=== PATIENT | male | born 1980 | race Caucasian/White ===

== ENCOUNTER 2019-11-15 12:55 | Outpatient (REF) | payer MEDICAID, SELFPAY ==
[2019-11-15 13:50] LABS: Bilirubin Negative (Negative); Blood Negative (Negative); Clarity Clear (Clear); Glucose Negative (Negative); Ketones Negative (Negative); Leukocyte Esterase Negative (Negative); Nitrite Negative (Negative); Specific Gravity 1.025 (1.005-1.025); Urobilinogen 0.2 EU/dL (Up TO 0.2)
[2019-11-15 14:02] LABS: Bacteria Negative HPF (Negative); C & S Indicated? No; Casts Negative LPF (Negative); Crystals Negative HPF (Negative); Epithelial Cells Negative HPF (Negative); Mucus Negative (Negative); Other Cells Negative (Negative); RBC 0-2 HPF (0-2); WBC 0-2 HPF (0-5)
[2019-11-15 14:32] LABS: POTASSIUM,URINE RANDOM 47 mmol/L; Sodium, Urine 116 mmol/L
[2019-11-15 14:38] LABS: COMMENT (LAB VIEW ONLY) 79.23 mg/dL; Microalb ug/mg Crea 5.8 ug/mg Cr
[2019-11-15 20:31] LABS: Osmolality, Urine 540 mOsm/kg (150-1,150)
== END 2019-11-15 13:15 ==
LOC: LBN 12:55
PROVIDERS: PCP Emergency Medicine; Visit Provider Internal Medicine
DX: N20.0 Calculus of kidney (principal); I10 Essential (primary) hypertension
CPT/HCPCS: 83935; 81003; 81015; 82040; 82043; 82436; 82570; 84133; 84300

== ENCOUNTER 2020-01-09 13:47 | Emergency (ER) | payer MEDICAID, SELFPAY ==
[2020-01-09] VITALS (25 sets, daily range): BP systolic 136–184; BP diastolic 75–108; PULSE 73–121; RESP 11–21; TEMP 37.1–37.2; O2SAT 95–100
--- NOTE | 2020-01-09 13:45 | RT.EKG_ITS ---
APPROVED REPORT Exam: Resting ECG Patient Location: E HR:108 bpm ECG Measurements Heart Rate 108 AXIS IL 147 P 53 QRSd 81 QRS 14 QT 333 T 38 QTc 443 Conclusion Sinus tachycardia...rate 108, Ventricular premature complex..no st elevation
[2020-01-09] MEDS: Normal Saline Flush 10 ML SYR IVP (14:00)
--- NOTE | 2020-01-09 14:10 | W.ED.GENAD ---
Discharge Plan Disposition Patient Disposition: HOME Condition: Improving Discharge Details Chief Complaint: GenMedical Clinical Impression: Hypertension Primary Care Provider: Teddy Montanez ED Provider: Andrew Patrick Home Meds and New Rx's Prescriptions: Continued triamcinolone acetonide 0.025 % ointment 2 % Topical DAILY Qty: 1 RF: 3 metoprolol succinate 50 mg tablet extended release 24 hr 50 mg PO DAILY Qty: 90 RF: 3 cetirizine [24Hour Allergy] 10 mg tablet 10 mg PO DAILY Qty: 100 RF: 3 famotidine [Pepcid] 20 mg tablet 20 mg PO DAILY Qty: 90 RF: 3 ibuprofen [IBU-200] 200 mg Tablet 600 mg PO Q6H PRNRF: 0 Discharge Instructions Instructions: Hypertension (ED) Additional Instructions: Please follow-up in clinic for your scheduled recheck on January 16 at 1:40 PM. Please check your blood pressures twice daily at the same time. Avoid processed carbohydrates and please limit the salt in your diet. Return if you have persistent headache, develop chest pain, difficulty breathing, or any other acute concerns. Referrals: Teddy Montanez DO [Primary Care Provider] - Medical Decision Making This is a 39-year-old male with a history of hypertension. He states he awoke early this morning for a planned dental procedure regarding which he was anxious. At the dentist office she had hypertension approxi-170/100, the procedure was canceled and he was referred to his primary care office. He was seen at [facility] where he again had hypertension. He was sent home to rest with a plan for outpatient laboratory draw and recheck in 1 week's time. Patient states at home he felt a headache and general malaise. He took ibuprofen and since had improvement of his headache. He does admit to periprocedural anxiety regarding his dental care. He arrives to the ER mildly anxious, mildly tachycardic and moderately hypertensive approximately 165/95 at the time of my exam. Screening EKG unremarkable. Patient given 5 mg of metoprolol, fluid bolus, referred for laboratory testing. White blood cell count is 7, hematocrit 48, platelets 266. His chemistries show sodium 137, potassium 3.4, chloride 90, bicarb 25. BUN is 8 and creatinine 0.8. Negative troponin. He does have elevated glucose 268. Hemoglobin A1c is 5.8. Today's glucose was not a fasting test. He does have glucosuria present along with trace ketones. Given the above I am concerned he is developing borderline diabetes and will require a fasting glucose test. Additionally, he may require increased antihypertensives but has responded well to 5 mg of IV metoprolol in the ED with correction of blood pressure to 140/95. He already has a follow-up plan in place to check daily blood pressures and follow-up in the clinic on January 16. I feel he may require increase to his metoprolol but that it is best to proceed with this plan in place. Discussed above with the patient. He stable and improved at this time. HPI General Mode of arrival: ambulatory. Date/Time Provider Initiated Documentation: 01/09/20 13:47. Limitations to Documentation: no limitations. Information obtained by: patient. History of Present Illness 39 year old M presents to the emergency department with the chief complaint of Elevated blood pressure, weakness and malaise, described as moderate, Quality is described as dull and constant, Patient reports no radiation. Patient started experiencing this hour(s) and it has been constant. No relieving factors improve symptom(s), No exacerbating factors reported . Patient notes other (Had a headache which is now improved). Patient did receive the following treatments prior to arrival, NSAID Related Data Home Medications Medication Instructions Recorded Confirmed triamcinolone acetonide 0.025 % 2 % TOPICAL DAILY #1 tub 06/07/19 01/09/20 topical ointment metoprolol succinate 50 mg 50 mg PO DAILY #90 tab 06/18/19 01/09/20 tablet,extended release 24 hr cetirizine 10 mg tablet 10 mg PO DAILY #100 tab-cap 06/21/19 01/09/20 famotidine 20 mg tablet 20 mg PO DAILY #90 tab 06/21/19 01/09/20 ibuprofen [IBU-200] 600 mg PO Q6H PRN 01/09/20 01/09/20 Previous Rx's Medication Instructions Recorded triamcinolone acetonide 0.025 % 2 % TOPICAL DAILY #1 tub 06/07/19 topical ointment metoprolol succinate 50 mg 50 mg PO DAILY #90 tab 06/18/19 tablet,extended release 24 hr cetirizine 10 mg tablet 10 mg PO DAILY #100 tab-cap 06/21/19 famotidine 20 mg tablet 20 mg PO DAILY #90 tab 06/21/19 Allergies Allergy/AdvReac Type Severity Reaction Status Date / Time chlorthalidone AdvReac Severe Hypokalemia Verified 01/09/20 10:57 omeprazole AdvReac Intermediate gynecomasti Verified 01/09/20 10:57 a tamsulosin HCl [From Flomax] AdvReac Intermediate headache Verified 01/09/20 10:57 General Stated Complaint: GenMedical BRIANNA: 3 Review of Systems Narrative: Patient will note increased urination over weeks to months time. 8 systems reviewed and otherwise negative [facility] Medical History Anxiety (Inactive) Blood glucose abnormal (Inactive 04/27/12) Essential hypertension (Inactive 02/26/16) Kidney stone (Inactive) Left ureteral stone (Inactive 12/25/15) Necrotizing granuloma present on biopsy of lymph node (Inactive 04/22/15) Non-alcoholic fatty liver disease (Inactive) HELTNO Psoriasis (Inactive) PSVT (paroxysmal supraventricular tachycardia) (Acute) Torn ACL (anterior cruciate ligament) (Inactive 05/27/14) right knee. surgery 2014 Surgical History Arthroplasty of knee right- Dr. Ritchie Biopsy, Lymph Node right groin CYSTOURETHROSCOPY (01/06/16) WITH LEFT URETEROSCOPY History of arthroscopy of knee (Inactive) History of ureter stent (Inactive 01/06/16) Repair of inguinal hernia (01/11/17) Right,indirect Stent placement (01/06/16) LEFT URETERAL STENT Family History Grandmother Diabetes Stroke Grandmother Diabetes Heart disease PACEMAKER Social History Smoking/Tobacco Use Status: Never Alcohol Intake: never Drug use: Never Substance use type: does not use Do you feel safe at home: Yes Do you feel safe in your relationship?: Yes Exam Narrative Exam Narrative: GEN: awake, alert, oriented 3. Pleasant, well groomed, interactive. HEAD: Normocephalic, atraumatic ENT: Mucous membranes moist, oropharynx unremarkable, External ear exam unremarkable EYES: PERRL, EOMI NECK: Full ROM, no KEYON, no menigismus CHEST/RESP: Nontender, clear to auscultation bilateral, no wheeze/rhonchi/rales CARDIOVASCULAR: Regular, borderline tachycardia, no murmur, rub gena. 2+ Rad pulse bilateral ABDOMEN: Soft, nontender, no mass. +Bowel sounds EXT: Full ROM, no edema, no rash Neuro: Grossly normal neurologic exam, conversant, interactive. Psych: Speech fluent, thoughts congruent, affect anxious Course Vital Signs Vital signs: Vital Signs Temperature 37.2 C 01/09/20 13:52 Pulse 115 H 01/09/20 13:52 Respiratory Rate 20 01/09/20 13:52 Blood Pressure 184/108 H 01/09/20 13:52 Pulse Oximetry 100 01/09/20 13:52 Temperature 37.2 C 01/09/20 13:52 Temperature Source Temporal Artery Scan 01/09/20 13:52 Pulse 98 H 01/09/20 14:01 Pulse 111 H 01/09/20 14:01 Respiratory Rate 17 01/09/20 14:07 Respiratory Effort 01/09/20 14:07 Respiratory Depth Normal 01/09/20 14:07 Respiratory Pattern Normal 01/09/20 14:07 Blood Pressure 165/95 H 01/09/20 14:01 Blood Pressure Mean 109 01/09/20 14:01 Blood Pressure Position Supine 01/09/20 13:52 Pulse Oximetry 100 01/09/20 14:01 Oxygen Delivery Method Room Air 01/09/20 13:52 Oxygen Flow Rate 0 01/09/20 13:52 Pain Level 0 01/09/20 13:52
[2020-01-09 14:18] LABS: Abs Immature Grans 0.02 10^3/uL (0.0-0.06); Absolute Basophil Count 0.02 10^3/uL (0.0-0.2); Absolute Eosinophil Count 0.02 10^3/uL (0.0-0.7); Absolute Lymphocyte Count 1.87 10^3/uL (1.2-3.4); Absolute Monocyte Count 0.49 10^3/uL (0.1-0.8); Absolute Neutrophil Count 5.48 10^3/uL (1.2-6.7); Basophils % 0.3; Eosinophils % 0.3; HCT 48.1 % (40.0-50.0); Immature Grans % 0.3; Lymphocytes % 23.7; MCH 30.2 pg (27.0-33.0); MCHC 35.3 % (32.0-36.0); MCV 85.4 fL (80-95); MPV 9.5 fL (8.0-11.0); Monocytes % 6.2; Neutrophils % 69.2; Nucleated RBC 0 %; Platelet Count 266 10^3/uL (130-400); RBC 5.63 10^6/uL (4.36-5.78); RDW 12.2 % (11.8-14.1)
[2020-01-09] MEDS: Normal Saline 1,000 ML 1000 ML IV (14:20)
[2020-01-09] MEDS: Metoprolol 5 MG/5 ML VIAL IVP (14:22)
[2020-01-09 14:36] LABS: Bilirubin Negative (Negative); Blood Negative (Negative); Clarity Clear (Clear); Glucose 500 mg/dL (Negative); Ketones Trace mg/dL (Negative); Leukocyte Esterase Negative (Negative); Nitrite Negative (Negative); Specific Gravity 1.025 (1.005-1.025)
[2020-01-09 14:40] LABS: ALT 95 U/L (16-63); AST 51 U/L (15-37); Albumin 4.4 g/dL (3.4-5.0); Alkaline Phosphatase 88 U/L (46-116); Anion Gap 12.6 mmol/L (3-11); BUN 8 mg/dL (7-18); Bilirubin, Total 0.6 mg/dL (0.2-1.0); CO2 25.4 mmol/L (21.0-32.0); CREATININE 0.85 mg/dL (0.70-1.30); Calcium 9.3 mg/dL (8.5-10.1); Chloride 99 mmol/L (98-107); Glucose 268 mg/dL (74-106); Potassium 3.4 mmol/L (3.5-5.1); Sodium 137 mmol/L (136-145); Total Protein 8.4 g/dL (6.4-8.2)
[2020-01-09 14:42] LABS: Troponin I < 0.05 ng/mL (<0.06)
[2020-01-09 15:03] LABS: Hemoglobin A1C 5.8 % (<5.7)
== END 2020-01-09 15:45 | disposition home or self-care (01) ==
LOC: ER 15:43
PROVIDERS: Emergency Provider Emergency Medicine; PCP Emergency Medicine
DX: I10 Essential (primary) hypertension (principal); R51 Headache; F41.9 Anxiety disorder, unspecified; R73.9 Hyperglycemia, unspecified
CPT/HCPCS: 36415; 80053; 93005; 96361; 96374; 99284; 81003; 83036; 84484; 85025; 93010

== ENCOUNTER 2020-02-10 01:35 | Outpatient (CLI) | payer MEDICAID, SELFPAY ==
--- NOTE | 2020-02-10 07:30 | DI.US_ITS ---
EXAM: US ABDOMEN CLINICAL HISTORY: Elevated liver function tests,R79.89 TECHNIQUE: Ultrasound abdomen performed using standard protocol. COMPARISON: CT CHEST FOR PULMONARY EMBOLUS from 10/22/2016 FINDINGS: LIVER: The liver is enlarged, measuring 16.7 cm in length. There is increased echogenicity consisten t with hepatic steatosis. No focal mass is seen. GALLBLADDER: No evidence of cholelithiasis. No evidence of wall thickening. No pericholecystic fluid identified. AARON'S SIGN: Negative. BILIARY SYSTEM: No intrahepatic or extrahepatic biliary ductal dilation. KIDNEYS: Kidneys are symmetric in size. There is a question of nonobstructed renal calculi versus ar tifact. No evidence of hydronephrosis. No renal mass or cyst identified. PANCREAS: Normal where visualized. SPLEEN: Mildly enlarged at 14 cm. ABDOMINAL AORTA AND IVC: Visualized portions normal caliber. ASCITES: None seen. IMPRESSION: Hepatic steatosis. Mildly enlarged spleen. Question of right renal calculi versus artifact. No hyd ronephrosis. DATA REPOSITORY:
== END 2020-02-10 01:55 ==
PROVIDERS: PCP Nurse Practitioner Family; Visit Provider Emergency Medicine
DX: K76.0 Fatty (change of) liver, not elsewhere classified (principal); R16.1 Splenomegaly, not elsewhere classified; R79.89 Other specified abnormal findings of blood chemistry
CPT/HCPCS: 76700

== ENCOUNTER 2020-02-10 02:54 | Outpatient (CLI) | payer MEDICAID, SELFPAY ==
[2020-02-10 10:45] LABS: Hemoglobin A1C 5.5 % (<5.7)
[2020-02-10 11:26] LABS: Iron 156 ug/dL (65-175); Total Iron Binding Capacity 305 ug/dL (250-450); Transferrin Sat 51 % (20-55)
[2020-02-10 11:39] LABS: ALT 117 U/L (16-63); AST 58 U/L (15-37); Albumin 4.4 g/dL (3.4-5.0); Alkaline Phosphatase 84 U/L (46-116); Bilirubin, Total 0.9 mg/dL (0.2-1.0); Glucose 107 mg/dL (74-106); TSH 1.23 uIU/mL (0.36-3.74); Total Protein 7.9 g/dL (6.4-8.2)
[2020-02-10 12:03] LABS: Ferritin 358 ng/mL (26-388); GGT 57 U/L (15-85)
[2020-02-10 12:23] LABS: ALT 124 U/L (16-63); AST 59 U/L (15-37); Albumin 4.5 g/dL (3.4-5.0); Alkaline Phosphatase 85 U/L (46-116); Anion Gap 10.1 mmol/L (3-11); BUN 17 mg/dL (7-18); Bilirubin, Total 0.9 mg/dL (0.2-1.0); CO2 26.9 mmol/L (21.0-32.0); CREATININE 0.75 mg/dL (0.70-1.30); Calcium 9.2 mg/dL (8.5-10.1); Chloride 102 mmol/L (98-107); Glucose 106 mg/dL (74-106); Potassium 3.8 mmol/L (3.5-5.1); Sodium 139 mmol/L (136-145)
[2020-02-10 14:58] LABS: Abs Immature Grans 0.03 10^3/uL (0.0-0.06); Absolute Basophil Count 0.04 10^3/uL (0.0-0.2); Absolute Eosinophil Count 0.09 10^3/uL (0.0-0.7); Absolute Lymphocyte Count 2.32 10^3/uL (1.2-3.4); Absolute Monocyte Count 0.42 10^3/uL (0.1-0.8); Absolute Neutrophil Count 3.01 10^3/uL (1.2-6.7); Basophils % 0.7; Eosinophils % 1.5; HCT 48.7 % (40.0-50.0); HGB 17.2 g/dL (13.5-17.5); Immature Grans % 0.5; Lymphocytes % 39.3; MCH 30.3 pg (27.0-33.0); MCHC 35.3 % (32.0-36.0); MCV 85.9 fL (80-95); MPV 10.4 fL (8.0-11.0); Monocytes % 7.1; Neutrophils % 50.9; Nucleated RBC 0 %; Platelet Count 251 10^3/uL (130-400); RBC 5.67 10^6/uL (4.36-5.78); RDW 12.4 % (11.8-14.1); RDW-SD 38.5 fL; WBC 5.91 10^3/uL (4.4-10.8)
[2020-02-11 11:13] LABS: HBs Antibody, Qual Negative (See Note); HBs Antibody, Quant <3.1 mIU/mL (See Note); Hepatitis B Core Antibody Negative (Negative); Hepatitis B surface Ag Negative (Negative); Hepatitis C Ab w Rflx HCV PCR Negative (Negative)
== END 2020-02-10 03:14 ==
PROVIDERS: PCP Nurse Practitioner Family; Visit Provider Emergency Medicine
DX: E11.65 Type 2 diabetes mellitus with hyperglycemia (principal); E03.9 Hypothyroidism, unspecified; I10 Essential (primary) hypertension; R79.89 Other specified abnormal findings of blood chemistry
CPT/HCPCS: 36415; 80053; 80076; 82947; 86704; 86706; 86803; 87340; 82728; 82977; 83036; 83540; 83550; 84443; 85025

== ENCOUNTER 2020-08-11 03:44 | Outpatient (CLI) | payer MEDICAID, SELFPAY ==
[2020-08-11 09:31] LABS: Abs Immature Grans 0.01 10^3/uL (0.0-0.06); Absolute Basophil Count 0.04 10^3/uL (0.0-0.2); Absolute Eosinophil Count 0.13 10^3/uL (0.0-0.7); Absolute Lymphocyte Count 2.41 10^3/uL (1.2-3.4); Absolute Monocyte Count 0.53 10^3/uL (0.1-0.8); Basophils % 0.7; Eosinophils % 2.3; HCT 46.2 % (40.0-50.0); HGB 16.3 g/dL (13.5-17.5); Immature Grans % 0.2; Lymphocytes % 42.1; MCH 30.5 pg (27.0-33.0); MCHC 35.3 % (32.0-36.0); MCV 86.4 fL (80-95); MPV 9.6 fL (8.0-11.0); Monocytes % 9.3; Neutrophils % 45.4; Nucleated RBC 0 %; Platelet Count 222 10^3/uL (130-400); RBC 5.35 10^6/uL (4.36-5.78); RDW 11.9 % (11.8-14.1); RDW-SD 37.7 fL; WBC 5.72 10^3/uL (4.4-10.8)
[2020-08-11 09:43] LABS: Prothrombin Time 10.4 sec (9.3-11.0)
[2020-08-11 09:44] LABS: Hemoglobin A1C 5.9 % (<5.7)
[2020-08-11 10:08] LABS: Iron 90 ug/dL (65-175); Total Iron Binding Capacity 278 ug/dL (250-450); Transferrin Sat 32 % (20-55)
[2020-08-11 10:18] LABS: TSH 1.83 uIU/mL (0.36-3.74)
[2020-08-11 10:22] LABS: ALT 77 U/L (16-63); AST 34 U/L (15-37); Albumin 4.4 g/dL (3.4-5.0); Alkaline Phosphatase 90 U/L (46-116); Anion Gap 11.4 mmol/L (3-11); BUN 13 mg/dL (7-18); Bilirubin, Total 0.6 mg/dL (0.2-1.0); CO2 27.6 mmol/L (21.0-32.0); CREATININE 0.9 mg/dL (0.70-1.30); Calcium 9.2 mg/dL (8.5-10.1); Chloride 103 mmol/L (98-107); Ferritin 234 ng/mL (26-388); Glucose 149 mg/dL (74-106); Potassium 4.1 mmol/L (3.5-5.1); Sodium 142 mmol/L (136-145)
[2020-08-11 10:32] LABS: Bilirubin, Direct 0.2 mg/dL (0.0-0.2)
[2020-08-12 10:55] LABS: Hepatitis C Ab w Rflx HCV PCR Negative (Negative)
[2020-08-12 11:45] LABS: HBs Antibody, Quant <3.1 mIU/mL (See Note); Hepatitis B Surface Ab Negative (See Note)
[2020-08-12 11:55] LABS: Hepatitis B Surface Ag Negative (Negative)
[2020-08-12 12:19] LABS: IgA 453 mg/dL (85-499); Interpretation (See Note); Tissue Transglutaminase IgA 1.3 U/mL (<4.0)
[2020-08-12 14:55] LABS: ANA Interpretation Positive (Negative); ANA Titer Pattern 1:160 Speckled
[2020-08-12 15:02] LABS: Ceruloplasmin 20.7 mg/dL
[2020-08-13 13:48] LABS: Smooth Muscle Ab Screen Negative (Negative)
== END 2020-08-11 03:45 | disposition home or self-care (01) ==
LOC: LBO 03:44
PROVIDERS: PCP Emergency Medicine; Visit Provider Internal Medicine Gastroenterology
DX: R74.8 Abnormal levels of other serum enzymes (principal); E11.9 Type 2 diabetes mellitus without complications; R79.89 Other specified abnormal findings of blood chemistry; K76.0 Fatty (change of) liver, not elsewhere classified
CPT/HCPCS: 36415; 80053; 80076; 82390; 82784; 83516; 86706; 86803; 87340; 82728; 83036; 83540; 83550; 84443; 85025; 85610; 86038; 86255; 87350

== ENCOUNTER 2021-01-19 09:18 | Outpatient (CLI) | payer MEDICAID, SELFPAY ==
[2021-01-19 19:53] LABS: COVID-19 RT-PCR UVMMC Result Negative (Negative)
== END 2021-01-19 09:19 | disposition home or self-care (01) ==
LOC: LBO 09:18
PROVIDERS: PCP Emergency Medicine; Visit Provider Nurse Practitioner Family
DX: Z20.822 Contact with and (suspected) exposure to COVID-19 (principal)
CPT/HCPCS: U0003

== ENCOUNTER 2021-04-07 19:15 | Outpatient (REF) | payer MEDICAID, SELFPAY ==
[2021-04-10 11:08] LABS: COVID-19 RT-PCR UVMMC Result Negative (Negative)
== END 2021-04-07 19:16 | disposition home or self-care (01) ==
LOC: LBN 19:15
PROVIDERS: PCP Emergency Medicine; Visit Provider Family Medicine
DX: Z20.822 Contact with and (suspected) exposure to COVID-19 (principal)
CPT/HCPCS: U0003

== ENCOUNTER 2021-04-29 14:35 | Outpatient (REF) | payer MEDICAID, SELFPAY ==
[2021-04-29 20:03] LABS: Anion Gap 9.6 mmol/L (3-11); BUN 13 mg/dL (7-18); CO2 26.4 mmol/L (21.0-32.0); CREATININE 0.8 mg/dL (0.70-1.30); Calcium 9.4 mg/dL (8.5-10.1); Chloride 103 mmol/L (98-107); Glucose 198 mg/dL (74-106); Potassium 4.1 mmol/L (3.5-5.1); Sodium 139 mmol/L (136-145)
[2021-04-29 20:07] LABS: Hemoglobin A1C 6.4 % (<5.7)
[2021-05-01 15:52] LABS: COVID-19 RT-PCR UVMMC Result Negative (Negative)
== END 2021-04-29 14:36 | disposition home or self-care (01) ==
LOC: LBN 14:35
PROVIDERS: PCP Emergency Medicine; Visit Provider Nurse Practitioner Family
DX: E11.9 Type 2 diabetes mellitus without complications (principal); I10 Essential (primary) hypertension; Z20.822 Contact with and (suspected) exposure to COVID-19
CPT/HCPCS: 80048; U0003; 83036

== ENCOUNTER 2021-05-26 01:45 | Outpatient (CLI) | payer MEDICAID, SELFPAY ==
--- NOTE | 2021-05-26 08:30 | NS.NUTBLAN_ITS ---
Assessment: Mr. Tate presents for nutritional counseling for prediabetes. He reports that he has lost 7.5 in the past three weeks with intermittent fasting. He has also been started on metformin 250 mg PO bid. His A1C in April of 2021 was 6.4% c/w prediabetes. Mr. Tate reports a history which includes HTN, HELTON, and now prediabetes. His current typical eating pattern is 2 bagels with less than a 1 tsp. of butter, 2 cups coffee with 2 tsp. each of hazelnut creamer. His lunch is often a bowl of cereal or oatmeal. He has a late afternoon snack of berries or nuts. He has started to not eat again until morning after his late afternoon snack. Mr. Tate states that his health history including his prediabetes is frustrating given that he eats very moderately and he gets 83145 steps daily as well as including 30 minutes daily of moderate intensity physical activity. He also states that he worries what will happen when he meets his goal weight. He does not want to gain weight and thus continue to increase his risk for type 2 DM. He is 76 and 242.2 lbs. His BMI is 31 kg/m2 which is c/w class 1 (mild) obesity. Nutrition Diagnosis: Altered nutrition related laboratory value r/t prediabetes as evidenced by A1C of 6.4%. Intervention: Acknowledged to Mr. Tate that his intermittent fasting is helping him lose weight which will help to lower his A1C. I did point out to him that his diet is low in protein and vitamins as he does not eat many fruits and vegetables. Suggested eating vegetables throughout the day even after his late afternoon snack to increase his micronutrients. I also encouraged him to add protein to at least his two meals and his snack. Breakfast could be a bagel thin and some eggs, lunch can be a chicken breast and vegetables, snack can be nuts, eggs, cottage cheese etc. With regard to his concern about reaching a goal weight of 10% less than his starting weight, thus 225 lbs, we discussed what meals would look like and that his eating plan has to be sustainable for life. Provided written materials with the plate method to portion out foods. I also stated that when he meets his goal weight, he may have to increase his physical activity to one hour daily. Also discussed with Mr. Tate that weight is one factor that affects his overall health including his prediabetes. Remaining physically active and fit for life will also help him to prevent developing type 2 DM independent of his weight. Monitoring and Evaluation: Mr. Tate will monitor his weight and his A1C in three months. He will evaluate his progress at that time and will follow up with me as needed. Provided my contact information for him and encouraged him to call me with any questions or concerns regarding his nutrition care plan. Thank you for the referral.
== END 2021-05-26 01:46 | disposition home or self-care (01) ==
LOC: DS 01:45
PROVIDERS: PCP Family Medicine; Visit Provider Dietitian, Registered
DX: R73.9 Hyperglycemia, unspecified; Z71.3 Dietary counseling and surveillance; R73.03 Prediabetes
CPT/HCPCS: 97802

== ENCOUNTER 2021-07-21 04:27 | Outpatient (CLI) | payer MEDICAID, SELFPAY ==
[2021-07-21 10:15] LABS: Hemoglobin A1C 5.8 % (<5.7)
[2021-07-21 10:59] LABS: Anion Gap 6.4 mmol/L (3-11); BUN 12 mg/dL (7-18); CO2 30.6 mmol/L (21.0-32.0); CREATININE 0.7 mg/dL (0.70-1.30); Calcium 9.2 mg/dL (8.5-10.1); Calculated LDL 85 mg/dL (<100); Chloride 102 mmol/L (98-107); Cholesterol 188 mg/dL (<200); Glucose 140 mg/dL (74-106); HDL Cholesterol 29 mg/dL (40-60); Potassium 4.1 mmol/L (3.5-5.1); Sodium 139 mmol/L (136-145); Triglyceride 372 mg/dL (<150)
== END 2021-07-21 04:28 | disposition home or self-care (01) ==
LOC: LBO 04:27
PROVIDERS: PCP Family Medicine; Visit Provider Emergency Medicine
DX: E11.65 Type 2 diabetes mellitus with hyperglycemia (principal); I10 Essential (primary) hypertension; K76.0 Fatty (change of) liver, not elsewhere classified
CPT/HCPCS: 36415; 80048; 80061; 83036

== ENCOUNTER 2021-10-21 02:24 | Outpatient (CLI) | payer MEDICAID, SELFPAY ==
[2021-10-21 12:49] LABS: HCT 44.4 % (40.0-50.0); HGB 15.5 g/dL (13.5-17.5); MCH 30.5 pg (27.0-33.0); MCHC 34.9 % (32.0-36.0); MCV 87 fL (80-95); MPV 9.3 fL (8.0-11.0); Platelet Count 240 10^3/uL (130-400); RBC 5.09 10^6/uL (4.36-5.78); RDW 12.2 % (11.8-14.1); RDW-SD 39.3 fL; WBC 6.22 10^3/uL (4.4-10.8)
[2021-10-21 13:09] LABS: ALT 48 U/L (16-63); AST 27 U/L (15-37); Albumin 4.4 g/dL (3.4-5.0); Alkaline Phosphatase 91 U/L (46-116); Anion Gap 10.4 mmol/L (3-11); BUN 13 mg/dL (7-18); Bilirubin, Total 0.5 mg/dL (0.2-1.0); CO2 28.6 mmol/L (21.0-32.0); CREATININE 0.8 mg/dL (0.70-1.30); Calcium 8.8 mg/dL (8.5-10.1); Chloride 103 mmol/L (98-107); Glucose 98 mg/dL (74-106); Potassium 3.9 mmol/L (3.5-5.1); Sodium 142 mmol/L (136-145); Total Protein 8.2 g/dL (6.4-8.2)
[2021-10-21 13:14] LABS: Hemoglobin A1C 5.8 % (<5.7)
== END 2021-10-21 02:25 | disposition home or self-care (01) ==
LOC: LBO 02:24
PROVIDERS: PCP Family Medicine; Visit Provider Family Medicine
DX: I10 Essential (primary) hypertension (principal); R73.9 Hyperglycemia, unspecified; K76.0 Fatty (change of) liver, not elsewhere classified
CPT/HCPCS: 36415; 80053; 85027; 83036

== ENCOUNTER 2022-05-19 08:22 | Emergency (ER) | payer MEDICAID, SELFPAY ==
[2022-05-19 08:31] VITALS: BP 140/83; PULSE 95; RESP 17; TEMP 37.1; O2SAT 99
--- NOTE | 2022-05-19 09:22 | DI.RAD_ITS ---
Exam(s) XR RIBS LT W PA LAT CHEST EXAM: XR RIBS LT W PA LAT CHEST CLINICAL HISTORY: pain lower anterior rib cage post sledding inciden. TECHNIQUE: 2D digital imaging was performed. COMPARISON: CR CHEST 2 VIEWS PA,LAT from 10/22/2016 FINDINGS: Total 7 views: Left ribs: Four views reveal no obvious fracture. No osseous lesions. No radiopaque foreign body. Chest-two views: Heart size normal mediastinum is not widened. No infiltrates nor pleural effusions. No pneumothorax. IMPRESSION: No evidence of left rib fracture. No pneumothorax nor other lung findings. Normal heart size. DATA REPOSITORY: RADIATION DOSE DELIVERED:
--- NOTE | 2022-05-19 10:07 | ED.GENADUL_ITS ---
Discharge Plan Disposition Patient Disposition: Home Condition: Stable Discharge Details Clinical Impression: Chest wall contusion Primary Care Provider: Corey Kebede ED Provider: Latoya Modi Home Meds and New Rx's Prescriptions: New lidocaine [Lidoderm] 5 % adhesive patch,medicated 1 patch topical DAILY Qty: 15 0RF Rx Instructions: leave on most painful area for up to 12 hrs oxycodone 5 mg capsule 5 mg PO Q8H PRNQty: 6 0RF cyclobenzaprine 10 mg tablet 10 mg PO TID PRNQty: 10 0RF Continued triamcinolone acetonide 0.025 % ointment 1 applic Topical DAILY Qty: 1 3RF amlodipine 5 mg tablet 5 mg PO DAILY Qty: 90 3RF losartan 100 mg tablet 100 mg PO DAILY Qty: 90 3RF metoprolol succinate 50 mg tablet extended release 24 hr 50 mg PO DAILY Qty: 90 3RF cetirizine [24Hour Allergy] 10 mg tablet 10 mg PO DAILY Qty: 90 3RF pantoprazole [Protonix] [address] for susp in packet 40 mg PO DAILY Qty: 90 3RF tamsulosin [Flomax] 0.4 mg capsule 0.4 mg PO QHS Qty: 90 4RF ibuprofen [IBU-200] 200 mg Tablet 600 mg PO Q6H PRN Discharge Instructions Instructions: Contusion in Adults (ED) Additional Instructions: Take ibuprofen and Tylenol during the day as needed for pain At night you can take either the Flexeril or the oxycodone Oxycodone is addictive and can make you constipated, use caution while taking this medication, do not operate a vehicle for 8 hours after taking this medication Flexeril may also take make you tired, it is not addictive may help alleviate your symptoms Continue to take deep breaths so you do not develop pneumonia, take a full inhalation and exhalation at least 10 times a day Recheck with your primary care physician in 1 to 2 weeks with persistent discomfort or should he develop shortness of breath, worsening discomfort, fever, chills, abdominal pain, please present for reassessment Referrals: Corey Kebede, EDITING INTERN [Primary Care Provider] - Discharge Data Discharge Date/Time-TO BE ENTERED AT DEPARTURE: 05/19/22 10:23 Medical Decision Making This 41-year-old gentleman who is presenting approximately 4 days after sledding incident presents with persistent left chest wall discomfort. States his pain is largely exacerbated with breathing and movement. He denies any abdominal discomfort, nausea, vomiting, blood in stool, shortness of breath Has been taking [id number] interventions such as ibuprofen and Tylenol for pain control with only partial improvement in symptoms He denies any history of coagulopathy. He secondary to trauma and persistence of symptoms, x-ray was ordered of chest Abdominal assessment was performed without any tenderness appreciated on exam, no visible signs of abdominal trauma X-ray per radiology interpretation my review does not show evidence of pneumothorax or other significant acute abnormality, no obvious rib fractures although patient is made aware that cannot exclude rib fracture based on chest x-ray 11 and will engage in spirometry to ensure he does not develop pneumonia Small amount of opiate analgesia was applied Return precautions reviewed and patient expressed understanding Is discharged home in stable condition without hypoxia or notable tachypnea Repeat imaging in 1 week with persistent symptoms encouraged return precautions reviewed with patient Medical Records Medical records reviewed: Yes I reviewed the patient's medical records. HPI General Date/Time Provider Initiated Documentation: 05/19/22 08:38 . HPI Narrative: This 41-year-old male- presents after a sledding accident. He reportedly placed his arm back to stop the sled and fell on his left side on 14 May. Denies any additional injuries. States he has pain with breathing and movement. Denies any abdominal pain, nausea, vomiting, bloody stools. Denies history of coagulopathy. Denies any fever or chills. Related Data Home Medications Medication Instructions Recorded Confirmed ibuprofen 200 mg tablet (IBU-200) 600 mg PO Q6H PRN 01/09/20 05/19/22 triamcinolone acetonide 0.025 % 1 applic topical DAILY #1 g 04/29/21 05/19/22 topical ointment amlodipine 5 mg tablet 5 mg PO DAILY #90 tabs 07/07/21 05/19/22 losartan 100 mg tablet 100 mg PO DAILY #90 tabs 07/07/21 05/19/22 metoprolol succinate 50 mg 50 mg PO DAILY #90 tabs 07/07/21 05/19/22 tablet,extended release 24 hr cetirizine 10 mg tablet (24Hour 10 mg PO DAILY #90 tab-caps 09/22/21 05/19/22 Allergy) pantoprazole 40 mg granules 40 mg PO DAILY #90 ea 09/27/21 05/19/22 delayed-release for susp in packet (Protonix) tamsulosin 0.4 mg capsule (Flomax) 0.4 mg PO QHS #90 caps 12/20/21 05/19/22 cyclobenzaprine 10 mg tablet 10 mg PO TID PRN #10 tabs 05/19/22 lidocaine 5 % topical patch 1 patch topical DAILY #15 ea 05/19/22 (Lidoderm) oxycodone 5 mg capsule 5 mg PO Q8H PRN #6 caps 05/19/22 Previous Rx's Medication Instructions Recorded triamcinolone acetonide 0.025 % 1 applic topical DAILY #1 g 04/29/21 topical ointment amlodipine 5 mg tablet 5 mg PO DAILY #90 tabs 07/07/21 losartan 100 mg tablet 100 mg PO DAILY #90 tabs 07/07/21 metoprolol succinate 50 mg 50 mg PO DAILY #90 tabs 07/07/21 tablet,extended release 24 hr cetirizine 10 mg tablet (24Hour 10 mg PO DAILY #90 tab-caps 09/22/21 Allergy) pantoprazole 40 mg granules 40 mg PO DAILY #90 ea 09/27/21 delayed-release for susp in packet (Protonix) tamsulosin 0.4 mg capsule (Flomax) 0.4 mg PO QHS #90 caps 12/20/21 cyclobenzaprine 10 mg tablet 10 mg PO TID PRN #10 tabs 05/19/22 lidocaine 5 % topical patch 1 patch topical DAILY #15 ea 05/19/22 (Lidoderm) oxycodone 5 mg capsule 5 mg PO Q8H PRN #6 caps 05/19/22 Allergies Allergy/AdvReac Type Severity Reaction Status Date / Time chlorthalidone AdvReac Severe Hypokalemia Verified 05/19/22 08:38 omeprazole AdvReac Intermediate gynecomasti Verified 05/19/22 08:38 a General Stated Complaint: Fall/Non TraumaCriteria BRIANNA: 3 Review of Systems Narrative: Review of systems obtained x7 and negative aside from indication in [facility] PFSH All Active Problems (Updated 05/19/22 @ 10:12 by EVON Katz) Chest wall contusion (Acute) GERD (gastroesophageal reflux disease) (Chronic) Kidney stone (Chronic) multiple Hyperglycemia (Acute) 10/2021, [id number]-6.8%, FBS-98 04/20210181-[id number]-9.4% Essential hypertension (Acute) Scar of abdominal wall (Acute) Lymphadenitis (Acute) 2014-Right inguinal node-necrotizing lymphadenitis-unclear cause, no recurrence or sequela Non-alcoholic fatty liver disease (Acute) HELTON 2019-exam consistent with fatty liver, mildly elevated transaminases 10/2021-normal liver function test Medical History (Updated 05/19/22 @ 10:12 by EVON Katz) Anxiety Blood glucose abnormal (04/27/12) Essential hypertension (02/26/16) Hyperglycemia Left ureteral stone (12/25/15) Necrotizing granuloma present on biopsy of lymph node (04/22/15) Psoriasis PSVT (paroxysmal supraventricular tachycardia) 2016, probable sinus tachycardia associate with anxiety. Cardiac evaluation-monitoring was unremarkable otherwise Torn ACL (anterior cruciate ligament) (05/27/14) right knee. surgery 2014 Surgical History (Updated 10/27/21 @ 16:27 by Craig Cohen MD) Arthroplasty of knee right- Dr. Ritchie. ACL repair Biopsy, Lymph Node right groin CYSTOURETHROSCOPY (01/06/16) WITH LEFT URETEROSCOPY History of arthroscopy of knee History of ureter stent (01/06/16) Repair of inguinal hernia (01/11/17) Right,indirect Stent placement (01/06/16) LEFT URETERAL STENT Family History Grandmother Diabetes Stroke Grandmother Diabetes Heart disease PACEMAKER Social History Smoking/Tobacco Use Status: Never Second Hand Exposure: Yes Smoking risk assessment performed?: Yes Alcohol Intake: never Drug use: Never Substance use type: does not use Household members: spouse and children Housing: house Communication Needs: None Do you need help understanding health information?: Never Pets and animals: Yes Pets and animals: cat(s) Sexually active: Yes Do you think of yourself as: straight/heterosexual Current gender identity: male What is your relationship status?: How often do you talk on the phone with friends or family?: once per week How often do you get together with friends or relatives?: never Do you belong to any clubs or organized social groups?: no Panel score (0-1 are the most socially isolated patients): 1 What type of physical activity do you participate in: walking Duration: 30-45 minutes/day Frequency: daily Bee/Islam: Confucianist Special bee needs: No Seatbelt use: always Drive intox or ride w/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 Tenderness with palpation, no crepitus or visible sign of trauma Resp Effort & Inspection: normal respiratory effort Auscultation: clear to auscultation bilaterally Cardio Rate: regular rate Rhythm: regular rhythm GI Other: No abdominal tenderness, specifically no left upper quadrant tenderness or left lower quadrant tenderness, no CVA tenderness appreciated, no abdominal bruit or pulsatile mass Back/Spine/Pelvis Other: No midline thoracic or lumbar spine tenderness or visible sign of trauma Neuro General: patient alert and patient oriented x3 Other: Ambulatory with steady gait, GCS 15 Course Vital Signs Vital signs: Vital Signs Temperature 37.1 C 05/19/22 08:31 Pulse 95 H 05/19/22 08:31 Respiratory Rate 17 05/19/22 08:31 Blood Pressure 140/83 05/19/22 08:31 Pulse Oximetry 99 05/19/22 08:31 Temperature 37.1 C 05/19/22 08:31 Pulse 95 H 05/19/22 08:31 Respiratory Rate 17 05/19/22 08:31 Respiratory Effort Non-Labored 05/19/22 08:36 Blood Pressure 140/83 05/19/22 08:31 Blood Pressure Position Sitting 05/19/22 08:31 Pulse Oximetry 99 05/19/22 08:31 Oxygen Delivery Method Room Air 05/19/22 08:31 Oxygen Flow Rate 0 05/19/22 08:31 Pain Level 7 05/19/22 08:31
== END 2022-05-19 10:23 | disposition home or self-care (01) ==
PROVIDERS: Emergency Provider Physician Assistant; PCP Nurse Practitioner Family
DX: S20.212A Contusion of left front wall of thorax, initial encounter (principal); I10 Essential (primary) hypertension; W19.XXXA Unspecified fall, initial encounter
CPT/HCPCS: 99283; 71046; 71100; 99284

== ENCOUNTER 2022-12-29 05:31 | Outpatient (CLI) | payer MEDICAID, SELFPAY ==
[2022-12-29 12:24] LABS: Abs Immature Grans 0.01 10^3/uL (0.0-0.06); Absolute Basophil Count 0.03 10^3/uL (0.0-0.2); Absolute Eosinophil Count 0.07 10^3/uL (0.0-0.7); Absolute Lymphocyte Count 1.75 10^3/uL (1.2-3.4); Absolute Monocyte Count 0.45 10^3/uL (0.1-0.8); Absolute Neutrophil Count 2.39 10^3/uL (1.2-6.7); Basophils % 0.6; Eosinophils % 1.5; HCT 45.9 % (40.0-50.0); HGB 15.7 g/dL (13.5-17.5); Immature Grans % 0.2; Lymphocytes % 37.2; MCH 29.8 pg (27.0-33.0); MCHC 34.2 % (32.0-36.0); MCV 87 fL (80-95); MPV 9.7 fL (8.0-11.0); Monocytes % 9.6; Neutrophils % 50.9; Platelet Count 245 10^3/uL (130-400); RBC 5.26 10^6/uL (4.36-5.78); RDW 12.4 % (11.8-14.1); RDW-SD 39.7 fL
[2022-12-29 12:38] LABS: ALT 57 U/L (16-63); AST 34 U/L (15-37); Albumin 4.2 g/dL (3.4-5.0); Alkaline Phosphatase 84 U/L (46-116); Anion Gap 7.7 mmol/L (3-11); BUN 10 mg/dL (7-18); Bilirubin, Total 1.2 mg/dL (0.2-1.0); CO2 29.3 mmol/L (21.0-32.0); CREATININE 0.8 mg/dL (0.70-1.30); Calcium 9.6 mg/dL (8.5-10.1); Calculated LDL 132 mg/dL (<100); Chloride 106 mmol/L (98-107); Cholesterol 193 mg/dL (<200); Estimated GFR 114.74 (mL/min/1.73m2); Glucose 114 mg/dL (74-106); HDL Cholesterol 35 mg/dL (40-60); Hemoglobin A1C 5.8 % (<5.7); Potassium 4.3 mmol/L (3.5-5.1); Sodium 143 mmol/L (136-145); Total Protein 7.9 g/dL (6.4-8.2); Triglyceride 130 mg/dL (<150)
== END 2022-12-29 05:32 | disposition home or self-care (01) ==
LOC: LOS 05:31
PROVIDERS: Visit Provider Nurse Practitioner Adult Health
DX: K76.0 Fatty (change of) liver, not elsewhere classified (principal); I10 Essential (primary) hypertension; R73.09 Other abnormal glucose; R79.89 Other specified abnormal findings of blood chemistry
CPT/HCPCS: 36415; 80053; 80061; 83036; 85025

== ENCOUNTER → 2023-05-23 09:42 | Outpatient (CLI) | payer MEDICAID, SELFPAY ==
--- NOTE | 2023-05-23 09:30 | DI.RAD_ITS ---
Exam(s) XR SHOULDER RT COMPLETE 2+V EXAM: XR SHOULDER RT COMPLETE 2+V CLINICAL HISTORY: Right shoulder pain, fall 10 days ago,rotator cuff strain,s46.019a. TECHNIQUE: 2D digital imaging was performed. COMPARISON: No exams were available for comparison FINDINGS: Five views There is no dislocation of the glenohumeral joint and AC joint. Clavicle intact. No soft tissue jay cifications in the subacromial space. However, on the axial image there is a semi lunar calcificatio n measuring 8 x 3 mm seen anteriorly adjacent to the lesser tuberosity on the anterior aspect of the humeral head. Has appearance of a possible fracture fragment although there is no obvious defect in the adjacent parent bone. Greater tuberosity is intact. Humeral neck intact. IMPRESSION: There is an 8 x 3 mm calcifications seen on the axial view immediately anterior to the humeral head l abby tuberosity. Has the appearance of an avulsion fracture at this level. Correlation with site o f tenderness is recommended. No other fractures identified. DATA REPOSITORY: RADIATION DOSE DELIVERED:
== END ==
PROVIDERS: Visit Provider Physician Assistant Medical
DX: S42.434A Nondisplaced fracture (avulsion) of lateral epicondyle of right humerus, initial encounter for closed fracture (principal); X58.XXXA Exposure to other specified factors, initial encounter
CPT/HCPCS: 73030

== ENCOUNTER → 2023-06-12 11:12 | Outpatient (CLI) | payer MEDICAID, SELFPAY ==
--- NOTE | 2023-06-12 14:00 | DI.MRI_ITS ---
Exam(s) MR UPPER JOINT RT WO EXAM: MR UPPER JOINT RT WO CLINICAL HISTORY: S49.90XA injury of shoulder/upper arm; S46.011A Strain of muscle? RTC TEAR. TECHNIQUE: Multiplanar multisequence MRI was performed. COMPARISON: CR XR SHOULDER RT COMPLETE 2+V from 05/23/2023 FINDINGS: The examination is limited due to patient motion artifact. BONES: There is no fracture or contusion pattern. Small subchondral cysts are seen in the humeral hea d. JOINTS: Degenerative changes are seen at the acromioclavicular joint. The glenohumeral joint is norm al. TENDONS: Supraspinatus: Unremarkable. Infraspinatus: Unremarkable. Subscapularis: Unremarkable. Teres [place]: Unremarkable. Biceps and [place]: Unremarkable. MUSCLES: Unremarkable. GLENOID LABRUM: Unremarkable on this noncontrast examination. SOFT TISSUES: Unremarkable. LIGAMENTS: Unremarkable. OTHER: Subacromial and subdeltoid bursae are unremarkable. IMPRESSION: 1. There are degenerative changes seen at the acromioclavicular joint and humeral head. 2. No evidence of a rotator cuff or labral tear is seen on this noncontrast examination. DATA REPOSITORY:
== END ==
PROVIDERS: PCP Family Medicine; Visit Provider Student in an Organized Health Care Education/Training Program
DX: M25.511 Pain in right shoulder (principal)
CPT/HCPCS: 73221

== ENCOUNTER 2024-01-30 10:08 | Outpatient (REF) | payer MEDICAID, SELFPAY ==
[2024-01-30 14:13] LABS: Abs Immature Grans 0.01 10^3/uL (0.0-0.06); Absolute Basophil Count 0.04 10^3/uL (0.0-0.2); Absolute Eosinophil Count 0.07 10^3/uL (0.0-0.7); Absolute Lymphocyte Count 1.17 10^3/uL (1.2-3.4); Absolute Monocyte Count 0.26 10^3/uL (0.1-0.8); Absolute Neutrophil Count 2.14 10^3/uL (1.2-6.7); Basophils % 1.1 %; Eosinophils % 1.9 %; HCT 44.9 % (40.0-50.0); HGB 15.6 g/dL (13.5-17.5); Immature Grans % 0.3 %; Lymphocytes % 31.7 %; MCH 30.4 pg (27.0-33.0); MCHC 34.7 % (32.0-36.0); MCV 87 fL (80-95); MPV 10.2 fL (8.0-11.0); Platelet Count 205 10^3/uL (130-400); RBC 5.14 10^6/uL (4.36-5.78); RDW 12.1 % (11.8-14.1); WBC 3.69 10^3/uL (4.4-10.8)
[2024-01-30 14:42] LABS: TSH (W/Ref FT4) 1.37 uIU/mL (0.36-3.74)
== END 2024-01-30 10:09 | disposition home or self-care (01) ==
LOC: LBN 10:08
PROVIDERS: PCP Family Medicine; Visit Provider Physician Assistant
DX: I88.9 Nonspecific lymphadenitis, unspecified (principal); R59.1 Generalized enlarged lymph nodes
CPT/HCPCS: 84443; 85025

== ENCOUNTER 2024-04-05 09:23 | Outpatient (CLI) | payer MEDICAID, SELFPAY ==
[2024-04-05 09:49] LABS: Abs Immature Grans 0.01 10^3/uL (0.0-0.06); Absolute Basophil Count 0.06 10^3/uL (0.0-0.2); Absolute Eosinophil Count 0.17 10^3/uL (0.0-0.7); Absolute Lymphocyte Count 1.99 10^3/uL (1.2-3.4); Absolute Monocyte Count 0.46 10^3/uL (0.1-0.8); Absolute Neutrophil Count 2.35 10^3/uL (1.2-6.7); Basophils % 1.2 %; Eosinophils % 3.4 %; HCT 43.7 % (40.0-50.0); HGB 15.2 g/dL (13.5-17.5); Immature Grans % 0.2 %; Lymphocytes % 39.5 %; MCH 29.7 pg (27.0-33.0); MCHC 34.8 % (32.0-36.0); MCV 85 fL (80-95); MPV 9.7 fL (8.0-11.0); Monocytes % 9.1 %; Neutrophils % 46.6 %; Platelet Count 224 10^3/uL (130-400); RBC 5.12 10^6/uL (4.36-5.78); RDW 12.4 % (11.8-14.1); RDW-SD 38.6 fL; WBC 5.04 10^3/uL (4.4-10.8)
[2024-04-05 10:01] LABS: Hemoglobin A1C 6.3 % (<5.7)
[2024-04-05 10:14] LABS: ALT 76 U/L (16-63); AST 45 U/L (15-37); Albumin 3.9 g/dL (3.4-5.0); Alkaline Phosphatase 85 U/L (46-116); Anion Gap 2.3 mmol/L (3-11); BUN 10 mg/dL (7-18); Bilirubin, Total 0.73 mg/dL (0.2-1.0); CO2 28.7 mmol/L (21.0-32.0); CREATININE 0.9 mg/dL (0.70-1.30); Calcium 8.9 mg/dL (8.5-10.1); Calculated LDL 111 mg/dL (<100); Chloride 103 mmol/L (98-107); Cholesterol 179 mg/dL (<200); Estimated GFR 110.04 (mL/min/1.73m2); Glucose 119 mg/dL (74-106); HDL Cholesterol 35 mg/dL (40-60); Potassium 4.2 mmol/L (3.5-5.1); Sodium 134 mmol/L (136-145); Total Protein 7.7 g/dL (6.4-8.2); Triglyceride 169 mg/dL (<150)
== END 2024-04-05 09:24 | disposition home or self-care (01) ==
LOC: LBO 09:24
PROVIDERS: Nurse Practitioner Adult Health; PCP Family Medicine; Visit Provider Family Medicine
DX: I10 Essential (primary) hypertension (principal); R73.9 Hyperglycemia, unspecified; K76.0 Fatty (change of) liver, not elsewhere classified; K21.9 Gastro-esophageal reflux disease without esophagitis; K59.00 Constipation, unspecified
CPT/HCPCS: 36415; 80053; 80061; 83036; 85025

== ENCOUNTER 2024-05-29 19:38 | Emergency (ER) | payer MEDICAID, SELFPAY ==
[2024-05-29] VITALS (10 sets, daily range): BP systolic 129–155; BP diastolic 72–103; PULSE 57–78; RESP 22; TEMP 36.6; O2SAT 94–98
[2024-05-29 20:18] LABS: Bilirubin Negative (Negative); Blood Negative (Negative); Clarity Sl Cloudy (Clear); Glucose Negative (Negative); Ketones Negative (Negative); Leukocyte Esterase Negative (Negative); Nitrite Negative (Negative)
[2024-05-29] MEDS: Normal Saline - Diluent 50 ML VIAL IJ (20:35)
[2024-05-29] MEDS: Omnipaque 350 MG/ML 100 ML BTL IJ (20:36)
[2024-05-29 20:37] LABS: Abs Immature Grans 0.03 10^3/uL (0.0-0.06); Absolute Basophil Count 0.06 10^3/uL (0.0-0.2); Absolute Eosinophil Count 0.07 10^3/uL (0.0-0.7); Absolute Lymphocyte Count 2.15 10^3/uL (1.2-3.4); Absolute Monocyte Count 0.47 10^3/uL (0.1-0.8); Absolute Neutrophil Count 3.56 10^3/uL (1.2-6.7); Basophils % 0.9 %; Eosinophils % 1.1 %; HCT 48.2 % (40.0-50.0); HGB 16.7 g/dL (13.5-17.5); Immature Grans % 0.5 %; Lymphocytes % 33.9 %; MCH 30.2 pg (27.0-33.0); MCHC 34.6 % (32.0-36.0); MCV 87 fL (80-95); MPV 9.3 fL (8.0-11.0); Monocytes % 7.4 %; Neutrophils % 56.2 %; Platelet Count 236 10^3/uL (130-400); RBC 5.53 10^6/uL (4.36-5.78); RDW 12.2 % (11.8-14.1); RDW-SD 39.1 fL; WBC 6.34 10^3/uL (4.4-10.8)
--- NOTE | 2024-05-29 20:41 | DI.CT_ITS ---
Exam(s) CT ABDOMEN PELVIS W EXAM: CT ABDOMEN PELVIS W CLINICAL HISTORY: RLQ pain. TECHNIQUE: Imaging Protocol: Axial computed tomography images with coronal and sagittal reformatted images were created and reviewed CONTRAST MATERIAL: Intravenous: Omnipaque 350 Contrast volume:100 ml Oral: no COMPARISON: CT ABD PELVIS WO CONTRAST from 12/19/2015 CT CHEST FOR PULMONARY EMBOLUS from 10/22/2016 FINDINGS: ABDOMEN and PELVIS: Lung Bases: No acute findings. Liver: Mild hepatic steatosis.. No suspicious mass. Gallbladder and biliary tract: No radiodense calculus. No wall thickening or pericholecystic fluid. No biliary dilation. Pancreas: Normal density. No abnormal calcifications or inflammatory process. No evidence of mass. Spleen: Unremarkable. Kidneys: Normal size, contour and axis. 2 millimeter stone upper pole left kidney. No obstructive u ropathy. Stable simple cyst at the lower pole of the right kidney. No suspicious masses seen. Adrenal glands: No masses seen. Vasculature: Abdominal aorta non-dilated. Soft tissues: Small fat containing umbilical hernia. Prior right inguinal hernia repair. Bladder: No gross wall thickening. No calculi.No focal mass. Bowel: No obstruction. No bowel wall thickening. Appendix normal. Normal quantity of stool. Mild sigmoid diverticulosis. Evidence of diverticulitis. Peritoneal cavity: No ascites. No focal collection. No mesenteric inflammatory response. No free air . Bones: Unremarkable for age. Reproductive organs: Unremarkable. Lymph nodes: No pathologically enlarged lymph nodes. IMPRESSION:: No acute abnormality in the abdomen or pelvis. 2 millimeter nonobstructing stone upper pole left kidney. RADIATION DOSE DELIVERED: 835.13mGy.cm Total DLP DATA REPOSITORY: All CT scans at this facility are submitted to the National Radiology Data Registry (NRDR) Dose Index Registry (DIR) with the [employer] (A[employer]). RADIATION OPTIMIZATION: All CT scans at this facility use at least one of these dose optimization te chniques: automated exposure control; mA and/or kV adjustment per patient size (includes targeted exa ms where dose is matched to clinical indication); or iterative reconstruction.
[2024-05-29 20:43] LABS: Lipase 98 U/L (<78)
[2024-05-29 20:46] LABS: ALT 77 U/L (16-63); AST 35 U/L (15-37); Albumin 4.6 g/dL (3.4-5.0); Alkaline Phosphatase 103 U/L (46-116); Anion Gap 5.7 mmol/L (3-11); BUN 12 mg/dL (7-18); Bilirubin, Total 0.44 mg/dL (0.2-1.0); CO2 32.3 mmol/L (21.0-32.0); CREATININE 0.9 mg/dL (0.70-1.30); Chloride 103 mmol/L (98-107); Estimated GFR 110.04 (mL/min/1.73m2); Glucose 154 mg/dL (74-106); Potassium 3.5 mmol/L (3.5-5.1); Sodium 141 mmol/L (136-145); Total Protein 8.8 g/dL (6.4-8.2)
[2024-05-29] MEDS: ACETAMINOPHEN 500 MG/50 ML BAG 200 MG IVPB (20:53)
[2024-05-29] MEDS: Ondansetron 4 MG/2 ML VIAL IVP (20:53)
--- NOTE | 2024-05-29 21:33 | DI.VRAD_ITS ---
PROCEDURE INFORMATION: Exam: CT Abdomen And Pelvis With Contrast Exam date and time: 05/29/2024 8:36 PM Age: 43 years old Clinical indication: Abdominal pain; Localized; Right lower quadrant (rlq); Patient HX: Rlq pain TECHNIQUE: Imaging protocol: Computed tomography of the abdomen and pelvis with contrast. Radiation optimization: All CT scans at this facility use at least one of these dose optimization techniques: automated exposure control; mA and/or kV adjustment per patient size (includes targeted exams where dose is matched to clinical indication); or iterative reconstruction. Contrast material: [id number]; Contrast volume: 100 ml; Contrast route: INTRAVENOUS (IV); COMPARISON: CR RT HIP COMPLETE AP PELVIS 08/13/2017 11:04 PM FINDINGS: Lungs: Lung bases clear. Diaphragm: Small hiatal hernia. Liver: Probable fatty infiltration of the liver, difficult to confidently diagnose by CT imaging after administration of intravenous contrast. Gallbladder and biliary ducts: Normal appearing gallbladder. No calcified gallstones. No biliary dilatation. Pancreas: Normal appearing pancreas. Spleen: Splenomegaly, 14.5 cm craniocaudal dimension. Adrenal glands: Normal appearing adrenal glands. Kidneys and ureters: Small indeterminate hypoattenuating right renal lesion, not well characterized but statistically most likely a small renal cyst. 2 mm hyperdensity in the left kidney on image 68 of series 10, only seen on the axial series. Nonobstructing stone ? Vascular enhancement ? Uniform renal parenchymal enhancement. No hydronephrosis. Mildly prominent visualization of the urothelium in the left renal collecting system, both renal pelves, and proximal ureters. No obstructing ureteral stones. Stomach and bowel: Stomach largely decompressed. No small bowel dilatation to suggest obstruction. Scattered colonic diverticula. No evidence of diverticulitis or colitis. Appendix: Normal appendix. Intraperitoneal space: No gross ascites or free air. Vasculature: No abdominal aortic aneurysm. Lymph nodes: No pathologically enlarged mesenteric, retroperitoneal, or pelvic sidewall lymph nodes. Urinary bladder: Urinary bladder partially collapsed but grossly unremarkable, as seen. Reproductive: Normal-appearing prostate gland and seminal vesicles. Bones/joints: No acute fracture seen among the bones of the abdomen or pelvis. Spinal degenerative changes with discogenic degeneration, small Schmorl's nodes, and marginal osteophytes at several levels. Soft tissues: Small fat containing ventral hernia superior to the umbilicus. Fluid density along the right lower quadrant abdominal wall on image 197 of series 10. Prior right herniorrhaphy suspected. Correlation with surgical history recommended. IMPRESSION: 1. Prominent visualization of the urothelium in the left renal collecting system, both renal pelves, and both proximal ureters. Although nonspecific, an acute urinary tract infection could have this appearance. Clinical correlation is recommended. 2. Splenomegaly, 14.5 cm. Dictated and Authenticated by: Patrick Rodriguez MD. Ordering:GAEL Klein MD
--- NOTE | 2024-05-29 23:12 | ED.GENADUL_ITS ---
Discharge Plan Disposition Patient Disposition: Home Condition: Stable Discharge Details Clinical Impression: Abdominal pain, Acute viral syndrome, Ventral hernia Primary Care Provider: Andrew Mchugh ED Provider: Latoya Modi Home Meds and New Rx's Prescriptions: New ondansetron HCl 4 mg tablet 4 mg PO Q8H PRN PRNQty: 10 0RF Continued tamsulosin [Flomax] 0.4 mg capsule 0.8 mg PO QHS triamcinolone acetonide 0.025 % ointment 1 applic Topical DAILY Qty: 1 3RF amlodipine 5 mg tablet 5 mg PO DAILY Qty: 90 3RF losartan 100 mg tablet 100 mg PO DAILY Qty: 90 3RF metoprolol succinate 50 mg tablet extended release 24 hr 50 mg PO DAILY Qty: 90 3RF cetirizine [24Hour Allergy] 10 mg tablet 10 mg PO DAILY Qty: 90 3RF pantoprazole [Protonix] 40 mg tablet,delayed release (DR/EC) 40 mg PO DAILY Qty: 90 3RF ibuprofen [IBU-200] 200 mg Tablet 600 mg PO Q6H PRN Discharge Instructions Instructions: Abdominal Pain, Adult ED Additional Instructions: take tylenol as needed for pain zofran as needed for nausea and vomiting increased fluids f/u with pcp in 24-48 hours for reassessment return earlier with should you develop worsening pain, fever, or should any new concerns arise Referrals: Andrew Mchugh [Primary Care Provider] - Discharge Data Discharge Date/Time-TO BE ENTERED AT DEPARTURE: 05/29/24 23:16 HPI General Date/Time Provider Initiated Documentation: 05/29/24 19:46 . HPI Narrative: This 43-year-old gentleman with history of SVT, ureterolithiasis left, hypertension presents with report of some abdominal cramping around the periumbilical region, nausea without vomiting and some intermittent diarrhea with diaphoresis and chills. Patient denies known sick contacts. He denies any cough, chest pain, shortness of breath. Related Data Home Medications ?Medication ?Instructions ?Recorded ?Confirmed ibuprofen 200 mg tablet (IBU-200) 600 mg PO Q6H PRN 01/09/20 05/29/24 amlodipine 5 mg tablet 5 mg PO DAILY #90 tabs 07/04/22 05/29/24 losartan 100 mg tablet 100 mg PO DAILY #90 tabs 07/04/22 05/29/24 cetirizine 10 mg tablet (24Hour 10 mg PO DAILY #90 tab-caps 07/21/22 05/29/24 Allergy) metoprolol succinate 50 mg 50 mg PO DAILY #90 tabs 07/21/22 05/29/24 tablet,extended release 24 hr pantoprazole 40 mg tablet,delayed 40 mg PO DAILY #90 tabs 10/27/22 05/29/24 release (Protonix) tamsulosin 0.4 mg capsule (Flomax) 0.8 mg PO QHS 06/07/23 05/29/24 triamcinolone acetonide 0.025 % 1 applic topical DAILY #1 g 01/30/24 05/29/24 topical ointment ondansetron HCl 4 mg tablet 4 mg PO Q8H PRN PRN #10 tabs 05/29/24 Previous Rx's ?Medication ?Instructions ?Recorded amlodipine 5 mg tablet 5 mg PO DAILY #90 tabs 07/04/22 losartan 100 mg tablet 100 mg PO DAILY #90 tabs 07/04/22 cetirizine 10 mg tablet (24Hour 10 mg PO DAILY #90 tab-caps 07/21/22 Allergy) metoprolol succinate 50 mg 50 mg PO DAILY #90 tabs 07/21/22 tablet,extended release 24 hr pantoprazole 40 mg tablet,delayed 40 mg PO DAILY #90 tabs 10/27/22 release (Protonix) triamcinolone acetonide 0.025 % 1 applic topical DAILY #1 g 01/30/24 topical ointment ondansetron HCl 4 mg tablet 4 mg PO Q8H PRN PRN #10 tabs 05/29/24 Allergies Allergy/AdvReac Type Severity Reaction Status Date / Time furosemide Allergy Intermediate tachycardia Verified 05/29/24 19:50 chlorthalidone AdvReac Severe Hypokalemia Verified 05/29/24 19:50 omeprazole AdvReac Intermediate gynecomasti Verified 05/29/24 19:50 a caffeine AdvReac Mild Cardiac Verified 05/29/24 19:50 Dysrhythmia General Stated Complaint: Abd Prob BRIANNA: 3 Exam Narrative Exam Narrative: Alert and oriented 43-year-old male in no acute distress with right lower quadrant abdominal tenderness, no rebound or guarding. No CVA tenderness nausea without vomiting. No CVA tenderness no abdominal bruit or pulsatile mass, lungs clear to auscultation, cardiac rate rhythm regular, alert Course Vital Signs Vital signs: Vital Signs Temperature 36.6 C 05/29/24 19:42 Pulse 78 05/29/24 19:42 Respiratory Rate 22 05/29/24 19:42 Blood Pressure 155/103 H 05/29/24 19:42 Pulse Oximetry 98 05/29/24 19:42 Temperature 36.6 C 05/29/24 19:42 Temperature Source Oral 05/29/24 19:42 Pulse 62 05/29/24 21:46 Respiratory Rate 22 05/29/24 19:42 Blood Pressure 129/73 05/29/24 21:46 Blood Pressure Mean 94 05/29/24 21:46 Blood Pressure Position Sitting 05/29/24 19:42 Pulse Oximetry 96 05/29/24 21:50 Oxygen Delivery Method Room Air 05/29/24 19:42 Oxygen Flow Rate 0 05/29/24 19:42 Pain Level 6 05/29/24 19:46 Lab/Test Results Lab/Test Results: Laboratory Tests Range/Units 05/29/24 05/29/24 05/29/24 20:00 20:05 20:22 WBC (4.4-10.8) 10^3/uL 6.34 RBC (4.36-5.78) 10^6/uL 5.53 Hgb (13.5-17.5) g/dL 16.7 Hct (40.0-50.0) % 48.2 MCV (80-95) fL 87 MCH (27.0-33.0) pg 30.2 MCHC (32.0-36.0) % 34.6 RDW (11.8-14.1) % 12.2 Plt Count (130-400) 10^3/uL 236 MPV (8.0-11.0) fL 9.3 Immature Gran % % 0.5 Neutrophils % % 56.2 Lymphocytes % % 33.9 Monocytes % % 7.4 Eosinophils % % 1.1 Basophils % % 0.9 Nucleated RBC % (0.0-0.3) % 0.0 Absolute Neutrophils (1.2-6.7) 10^3/uL 3.56 Absolute Lymphocytes (1.2-3.4) 10^3/uL 2.15 Absolute Monocytes (0.1-0.8) 10^3/uL 0.47 Absolute Eosinophils (0.0-0.7) 10^3/uL 0.07 Absolute Basophils (0.0-0.2) 10^3/uL 0.06 Sodium (136-145) mmol/L 141 Potassium (3.5-5.1) mmol/L 3.5 Chloride (98-107) mmol/L 103 Carbon Dioxide (21.0-32.0) mmol/L 32.3 H Anion Gap (3-11) mmol/L 5.7 BUN (7-18) mg/dL 12 Creatinine (0.70-1.30) mg/dL 0.9 Est GFR (CKD-EPI 2020) (mL/min/1.73m2) 110.04 Glucose (74-106) mg/dL 154 H Calcium (8.5-10.1) mg/dL 10.0 Total Bilirubin (0.2-1.0) mg/dL 0.44 AST (15-37) U/L 35 ALT (16-63) U/L 77 H Alkaline Phosphatase (46-116) U/L 103 Total Protein (6.4-8.2) g/dL 8.8 H Albumin (3.4-5.0) g/dL 4.6 Lipase (<78) U/L 98 H Urine Color (Yellow) Yellow Urine Clarity (Clear) Sl Cloudy Urine pH (5-8) 7.0 Ur Specific [place] (1.005-1.025) 1.020 Urine Protein (Neg-Trace) mg/dL Negative Urine Ketones (Negative) mg/dL Negative Urine Blood (Negative) Negative Urine Nitrite (Negative) Negative Urine Bilirubin (Negative) Negative Urine Urobilinogen (Up to 0.2) mg/dL 1.0 H Ur Leukocyte Esterase (Negative) Negative Urine Glucose (Negative) mg/dL Negative COVID-19 Source Cancelled SARS-CoV-2 (PCR) Cancelled Influenza Type A (PCR) Cancelled Influenza Type B (PCR) Cancelled RSV (PCR) Cancelled Medical Decision Making 43-year-old male presenting with abdominal pain nausea and diarrhea would be nefit from CBC, CMP, labs, and urinalysis. CBC does not show evidence of acute abnormality, CMP is reassuring mild elevation in ALT, lipase is just slightly elevated. Gallbladder is well-appearing on CT scan, CT scan is vague, has some prominence of the left renal collecting system urinalysis does not show evidence of acute infection. There is splenomegaly on CT scan which is baseline for patient when compared to prior ultrasound. At this time I think patient is stable for discharge home, he is encouraged to follow-up with his primary care physician and his surgeon regarding his ventral hernia. Quality:SDOH Health Related Social Needs: No Data to Display PFSH All Active Problems (Updated 05/29/24 @ 22:20 by EVON Katz) Ventral hernia (Acute) Acute viral syndrome (Acute) Abdominal pain (Acute) Right shoulder injury (Acute ~04/2023) Rotator cuff injury (Acute) GERD (gastroesophageal reflux disease) (Chronic) Kidney stone (Chronic) multiple Hyperglycemia (Acute) 10/2021, Dkwe0q-5.8%, FBS-98 [id number]-9.4% Essential hypertension (Acute) Scar of abdominal wall (Acute) Lymphadenitis (Acute) 2014-Right inguinal node-necrotizing lymphadenitis-unclear cause, no recurrence or sequela Non-alcoholic fatty liver disease (Acute) [place] 2019-exam consistent with fatty liver, mildly elevated transaminases 10/2021-normal liver function test Medical History Hyperglycemia PSVT (paroxysmal supraventricular tachycardia) 2016, probable sinus tachycardia associate with anxiety. Cardiac evaluation- monitoring was unremarkable otherwise Anxiety Torn ACL (anterior cruciate ligament) (05/27/14) right knee. 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 Ritchie. ACL repair Family History Grandmother Diabetes Stroke Grandmother Diabetes Heart disease PACEMAKER Social History Smoking/Tobacco Use Status: Never Second Hand Exposure: Yes Smoking risk assessment performed?: Yes Alcohol Intake: never Drug use: Never Substance use type: does not use Household members: spouse and children Housing: house Communication Needs: None Do you need help understanding health information?: Never Pets and animals: Yes Pets and animals: cat(s) Sexually active: Yes Do you think of yourself as: straight/heterosexual Current gender identity: male What is your relationship status?: How often do you talk on the phone with friends or family?: once per week How often do you get together with friends or relatives?: never Do you belong to any clubs or organized social groups?: no Panel score (0-1 are the most socially isolated patients): 1 What type of physical activity do you participate in: walking Duration: 30-45 minutes/day Frequency: daily Bee/Oriental Orthodox: Adventism Special bee needs: No Seatbelt use: always 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
== END 2024-05-29 23:16 | disposition home or self-care (01) ==
PROVIDERS: Emergency Medicine; Emergency Provider Physician Assistant; PCP Family Medicine
DX: K43.9 Ventral hernia without obstruction or gangrene (principal); B34.9 Viral infection, unspecified; R10.31 Right lower quadrant pain; R11.0 Nausea; R19.7 Diarrhea, unspecified; I10 Essential (primary) hypertension
CPT/HCPCS: 36415; 80053; 83690; 87637; 96365; 96375; 99285; 74177; 81003; 85025; 99284; J0131; J2405; J3490

== ENCOUNTER 2024-09-17 02:02 | Outpatient (CLI) | payer MEDICAID, SELFPAY ==
[2024-09-17 13:12] LABS: Hemoglobin A1C 5.5 % (<5.7)
[2024-09-17 13:35] LABS: ALT 62 U/L (16-63); AST 40 U/L (15-37); Albumin 4.1 g/dL (3.4-5.0); Alkaline Phosphatase 84 U/L (46-116); Anion Gap 7.1 mmol/L (3-11); BUN 11 mg/dL (7-18); Bilirubin, Total 0.5 mg/dL (0.2-1.0); CO2 28.9 mmol/L (21.0-32.0); CREATININE 0.8 mg/dL (0.70-1.30); Calcium 9.1 mg/dL (8.5-10.1); Chloride 103 mmol/L (98-107); Estimated GFR 113.32 (mL/min/1.73m2); Glucose 162 mg/dL (74-106); Potassium 3.8 mmol/L (3.5-5.1); Sodium 139 mmol/L (136-145); Total Protein 7.9 g/dL (6.4-8.2)
== END 2024-09-17 02:03 | disposition home or self-care (01) ==
PROVIDERS: PCP Family Medicine; Visit Provider Family Medicine
DX: R73.01 Impaired fasting glucose (principal); I10 Essential (primary) hypertension; K76.0 Fatty (change of) liver, not elsewhere classified
CPT/HCPCS: 36415; 80053; 83036

== ENCOUNTER → 2025-05-07 00:10 | Outpatient (CLI) | payer MEDICAID, SELFPAY ==
[2025-05-07] MEDS: Bupivacaine 0.25% Pres-Free 10 ML VIAL IJ (10:00)
[2025-05-07] MEDS: methylPREDNISolone ACETATE 40 MG/ML VIAL IM (10:01)
[2025-05-07] MEDS: Lidocaine 1% Pres-Free 30 ML VIAL IJ (10:02)
[2025-05-07] MEDS: Omnipaque 300 MG/ML 10 ML BTL IJ (10:03)
--- NOTE | 2025-05-07 10:06 | DI.RAD_ITS ---
Exam(s) RF JOINT INJ. FLUORO GUID RAD EXAM: RF JOINT INJ. FLUORO GUID RAD CLINICAL HISTORY: R SHOULDER PAIN M75.81 RT SHOULDER LESION S49.91XA INJURY. TECHNIQUE: 2D and realtime digital imaging was performed. CONTRAST MATERIAL: Intra-articular contrast Optiray 320 - 1.5cc COMPARISON: No exams were available for comparison FINDINGS: This fluoroscopic guided right shoulder glenohumeral joint steroid injection was performed at the request of the referring orthopedic surgeon. The patient was consented prior to this procedure. The patient was placed in the supine position on the fluoroscopy table. Using sterile technique and adequate skin-subcutaneous anesthesia, fluoroscopic guidance was used to advance a 22 gauge spinal needle into the glenohumeral joint using an anterior approach. Intra-articular position was confirmed with injection of 1.5 cc of Optiray 320. Thereafter a sterile solution of 40 milligram Depo-Medrol and 3 cc of 0.25 percent bupivacaine was injected into the joint space. The indwelling needle was then removed and a Band-Aid applied. The patient tolerated this procedure well and there were no intraprocedural complications. IMPRESSION: Successful right shoulder glenohumeral joint steroid injection using fluoroscopic guidance. RADIATION DOSE DELIVERED: Ka,r=2.11mGy
== END ==
LOC: DI 00:10
PROVIDERS: PCP Nurse Practitioner Family; Visit Provider Student in an Organized Health Care Education/Training Program
DX: M75.81 Other shoulder lesions, right shoulder (principal); S49.91XD Unspecified injury of right shoulder and upper arm, subsequent encounter; X58.XXXD Exposure to other specified factors, subsequent encounter
CPT/HCPCS: 20610; 77002; J0665; J1010